=== PATIENT | male | born 1980 | race Caucasian/White ===

== ENCOUNTER 2017-03-12 17:02 | Inpatient (IN) ==
--- NOTE | 2017-03-12 17:15 | Emergency Department Note ---
Disposition Clinical Impression: Suicidal ideation Disposition: Admitted As Inpatient Condition: Good General Adult HPI - General Chief complaint: ED GI Bleed Stated complaint: nausea,vomiting blood Time Seen by Provider: 03/12/17 17:12 Source: patient Limitations: no limitations - History of Present Illness Pain Scale: 8 - Related Data Previous Rx's Medication Instructions Recorded Naproxen [Naprosyn] 500 mg PO BID #30 tablet 12/24/16 Allergies Allergy/AdvReac Type Severity Reaction Status Date / Time Sulfa (Sulfonamide Allergy See Verified 12/24/16 12:21 Antibiotics) Comments Past Medical History - Past Medical History Medical history: Reports: no medical history - Social History Smoking Status: Current every day smoker Alcohol use: Reports: none Drug use: Reports: none Physical Exam - General Limitations: no limitations General appearance: alert, in no apparent distress Course Vital Signs Temperature 97.8 F 03/12/17 17:03 Pulse Rate 97 03/12/17 17:03 Respiratory Rate 18 03/12/17 17:03 Blood Pressure 135/92 03/12/17 17:03 O2 Sat by Pulse Oximetry 97 03/12/17 17:03 Temperature 97.3 F L 03/13/17 08:04 Pulse Rate 76 03/13/17 08:04 Respiratory Rate 16 03/13/17 08:04 Blood Pressure 111/79 03/13/17 08:04 O2 Sat by Pulse Oximetry 97 03/12/17 17:03 Oxygen Delivery Oxygen Delivery Room Air Medical Decision Making - Lab Data Result diagrams: 03/12/17 17:48 03/12/17 17:48 Lab Results 03/12/17 03/12/17 03/12/17 Range/Units 17:48 17:48 18:01 WBC 11.3 H (4.3-11.1) K/mcL RBC 5.15 (4.19-5.50) M/mcL Hgb 16.0 (12.9-16.9) g/dL Hct 46.6 (37.5-50.1) % MCV 90.5 (83.0-100.0) fL MCH 31.1 (28.0-33.3) pg MCHC 34.3 (31.6-35.5) g/dL RDW 11.9 (11.5-14.5) % Plt Count 252 (140-400) K/mcL MPV 9.3 L (9.4-12.4) fL Immature Gran % 0.4 (0-4) % Seg Neutrophils % 63.7 % Lymphocytes % 21.4 % Monocytes % 9.6 % Eosinophils % 4.4 % Basophils % 0.5 % Neutrophils # 7.2 (1.6-8.9) K/mcL Lymphocytes # 2.4 (0.6-4.6) K/mcL Monocytes # 1.1 (0.0-1.3) K/mcL Eosinophils # 0.5 (0.0-0.6) K/mcL Basophils # 0.1 (0.0-0.2) K/mcL Sodium 138 (136-145) mEq/L Potassium 3.5 (3.5-4.5) mEq/L Chloride 104 (98-109) mEq/L Carbon Dioxide 23 (19-29) mEq/L BUN 18 (8-26) mg/dL Creatinine 0.83 (0.72-1.25) mg/dL Est GFR ( Amer) > 60 (> 60) Est GFR (Non-Af Amer) > 60 (> 60) BUN/Creatinine Ratio 22 (6-26) Glucose 102 H (70-99) mg/dL Calculated Osmolality 288 (280-300) Calcium 9.8 (8.6-10.8) mg/dL Urine Color Yellow (Yellow) Urine Clarity Cloudy A (Clear) Urine pH 6.0 (5.0-8.0) pH Units Ur Specific [place] 1.021 (1.010-1.025) Urine Protein Negative (Neg-Trace) mg/dL Urine Glucose (UA) Normal (Normal) mg/dL Urine Ketones 40 H (Negative) mg/dL Urine Blood Negative (Negative) Urine Nitrite Negative (Negative) Urine Bilirubin Negative (Negative) Urine Urobilinogen Normal (Normal) mg/dL Ur Leukocyte Esterase Negative (Negative) Urine Microscopic WBC 0-3 (0-3) per hpf Ur Squamous Epith Cells Few (None-Few) per lpf Urine Bacteria Few (None-Few) per hpf Salicylates < 5.0 L (15-30) mg/dL Urine Opiates Screen (Hlownu=237) ng/mL Acetaminophen < 1.0 L (10-30) mcg/mL Ur Barbiturates Screen (Xwalrb=024) ng/mL Ur Phencyclidine Scrn (Cutoff=25) ng/mL Ur Amphetamines Screen (Eqjbxn=4824) ng/mL U Benzodiazepines Scrn (Dadsdn=746) ng/mL Urine Cocaine Screen (Cutoff= 300) ng/mL U Marijuana (THC) Screen (Cutoff = 50) ng/mL Ethyl Alcohol < 10 (0-10) mg/dL 03/12/17 Range/Units 18:01 WBC (4.3-11.1) K/mcL RBC (4.19-5.50) M/mcL Hgb (12.9-16.9) g/dL Hct (37.5-50.1) % MCV (83.0-100.0) fL MCH (28.0-33.3) pg MCHC (31.6-35.5) g/dL RDW (11.5-14.5) % Plt Count (140-400) K/mcL MPV (9.4-12.4) fL Immature Gran % (0-4) % Seg Neutrophils % % Lymphocytes % % Monocytes % % Eosinophils % % Basophils % % Neutrophils # (1.6-8.9) K/mcL Lymphocytes # (0.6-4.6) K/mcL Monocytes # (0.0-1.3) K/mcL Eosinophils # (0.0-0.6) K/mcL Basophils # (0.0-0.2) K/mcL Sodium (136-145) mEq/L Potassium (3.5-4.5) mEq/L Chloride (98-109) mEq/L Carbon Dioxide (19-29) mEq/L BUN (8-26) mg/dL Creatinine (0.72-1.25) mg/dL Est GFR ( Amer) (> 60) Est GFR (Non-Af Amer) (> 60) BUN/Creatinine Ratio (6-26) Glucose (70-99) mg/dL Calculated Osmolality (280-300) Calcium (8.6-10.8) mg/dL Urine Color (Yellow) Urine Clarity (Clear) Urine pH (5.0-8.0) pH Units Ur Specific [place] (1.010-1.025) Urine Protein (Neg-Trace) mg/dL Urine Glucose (UA) (Normal) mg/dL Urine Ketones (Negative) mg/dL Urine Blood (Negative) Urine Nitrite (Negative) Urine Bilirubin (Negative) Urine Urobilinogen (Normal) mg/dL Ur Leukocyte Esterase (Negative) Urine Microscopic WBC (0-3) per hpf Ur Squamous Epith Cells (None-Few) per lpf Urine Bacteria (None-Few) per hpf Salicylates (15-30) mg/dL Urine Opiates Screen Negative (Sspsbr=953) ng/mL Acetaminophen (10-30) mcg/mL Ur Barbiturates Screen Negative (Ammynw=264) ng/mL Ur Phencyclidine Scrn Negative (Cutoff=25) ng/mL Ur Amphetamines Screen Negative (Saebij=5335) ng/mL U Benzodiazepines Scrn Negative (Aiglnb=364) ng/mL Urine Cocaine Screen Positive H (Cutoff= 300) ng/mL U Marijuana (THC) Screen Negative (Cutoff = 50) ng/mL Ethyl Alcohol (0-10) mg/dL Attestation Statement - Attestation Attestation: I examined this patient and my medical decision-making was reviewed with the Resident Physician. I agree with the documented findings, disposition and treatment plan as described except to the extent set forth below. Inie-jy-pfof time provided in conjunction with the resident physician Dr. Ennis Patient appears in no acute distress on exam. He reports nausea, vomiting, hematemesis, epistaxis. Several days ago he attempted suicide by ingesting unknown medications that he purchased on the street. Triage notes and vitals reviewed by me. We will attempt to clear him medically for behavioral evaluation 18:12: Care to be endorsed to the oncoming physician at 7 PM pending behavioral consultation
[2017-03-12] MEDS ORDERED: Ondansetron ODT 4 MG TAB.RAPDIS SL ONE (17:34)
--- NOTE | 2017-03-12 17:35 | Emergency Department Note ---
Disposition Clinical Impression: Suicidal ideation Disposition: Still a Patient Condition: Good Referrals: NONE,PCP [Primary Care Provider] - Forms: ED Satisfaction Letter Time of Disposition: 18:53 General Adult HPI - General Chief complaint: ED GI Bleed Stated complaint: nausea,vomiting blood Time Seen by Provider: 03/12/17 17:12 Source: patient Limitations: no limitations Nursing Notes Reviewed: Yes Vital Signs Reviewed: Yes - History of Present Illness HPI Narrative: Patient presenting to the emergency department complaining of suicidal ideation. He has had a suicide attempt on Tuesday. Multiple street drugs and then ingested them and a suicide attempt. Did not wake up until yesterday and then was not out of his room until today. He is a member of the [employer]. States that he had a nosebleed yesterday and then today he had another nosebleed with some hematemesis. Reports some mild nausea currently as well as a headache. Pain Scale: 8 - Related Data Previous Rx's Medication Instructions Recorded Naproxen [Naprosyn] 500 mg PO BID #30 tablet 12/24/16 Allergies Allergy/AdvReac Type Severity Reaction Status Date / Time Sulfa (Sulfonamide Allergy See Verified 12/24/16 12:21 Antibiotics) Comments All systems ED: reviewed and negative except as stated. Constitutional: Denies: fever, chills Eyes: Reports: other (Nosebleed yesterday and today.). Denies: eye pain, vision change ENT ED: Denies: throat pain, congestion Cardiovascular: Denies: chest pain, palpitations, syncope Respiratory: Denies: cough, dyspnea, wheezes, hemoptysis Gastrointestinal: Reports: nausea, vomiting, hematemesis. Denies: abdominal pain, diarrhea Genitourinary: Denies: urgency, dysuria, frequency, hematuria, testicular mass Musculoskeletal: Denies: back pain, neck pain Integumentary: Denies: rash, abrasion, lesions Neurological: Reports: headache. Denies: weakness, numbness, paresthesias Past Medical History - Past Medical History Attestation: Yes The following information was validated with the patient. Medical history: Reports: no medical history - Social History Smoking Status: Current every day smoker Alcohol use: Reports: none Drug use: Reports: none Physical Exam - General Limitations: no limitations General appearance: alert, in no apparent distress - Head Head exam: atraumatic, normocephalic, normal inspection - Eye Eye exam: Present: normal appearance, PERRL, EOMI - ENT ENT exam: normal exam, normal oropharynx, mucous membranes moist - Neck Neck exam: Present: normal inspection, full ROM, trachea midline. Absent: tenderness, meningismus, lymphadenopathy - Chest Chest inspection: Present: normal inspection, symmetric chest wall rise. Absent : tenderness - Respiratory Respiratory exam: Present: normal lung sounds bilaterally. Absent: respiratory distress, accessory muscle use - Cardiovascular Cardiovascular exam: Present: regular rate, normal rhythm, normal heart sounds - Abdominal Exam Abdominal exam: Present: soft, Non-Tender. Absent: tenderness, distention, guarding, rebound, rigidity - Extremities Exam Extremities exam: Present: normal inspection, full ROM, normal capillary refill. Absent: tenderness, pedal edema - Back Exam Back exam: Present: normal inspection, full ROM. Absent: tenderness, CVA tenderness (R), CVA tenderness (L) - Neurological Exam Neurological exam: Present: alert, oriented X3 - Psychiatric Psychiatric exam: Present: normal affect, normal mood - Skin Skin exam: Present: warm, dry, intact, normal color. Absent: rash, cyanosis, diaphoresis, erythema Course Course Narrative: Patient presented to the emergency department complaining of suicidal ideation. He states that he had a suicide attempt on Tuesday. By ingestion. He bought several street drugs and ingested them. He did not wake up until yesterday. He had a nosebleed at that time. Today one of the members about his house found him in his room. States that he had a nosebleed and then some hematemesis. He states he has a headache at this time. He is also nauseated. Denies any shortness of breath or chest pain. Denies any abdominal pain. No hematemesis or epistaxis at this time. Lung sounds are clear abdomen is soft and nontender. No signs of edema to his extremities. Reports suicidal ideation. No homicidal ideation. No hallucinations. States that he does have a history of bipolar and depression. He denies taking any kind of medication for this. We will do a workup on patient and contact one A. Vital Signs Temperature 97.8 F 03/12/17 17:03 Pulse Rate 97 03/12/17 17:03 Respiratory Rate 18 03/12/17 17:03 Blood Pressure 135/92 03/12/17 17:03 O2 Sat by Pulse Oximetry 97 03/12/17 17:03 Temperature 97.8 F 03/12/17 17:03 Pulse Rate 97 03/12/17 17:03 Respiratory Rate 18 03/12/17 17:03 Blood Pressure 135/92 03/12/17 17:03 O2 Sat by Pulse Oximetry 97 03/12/17 17:03 Oxygen Delivery Oxygen Delivery Room Air Medical Decision Making - Medical Records Medical records reviewed: Yes I reviewed the patient's medical records. - Lab Data Lab results reviewed: Yes I reviewed the patient's lab results. Result diagrams: 03/12/17 17:48 03/12/17 17:48 Lab Results 03/12/17 03/12/17 03/12/17 Range/Units 17:48 17:48 18:01 WBC 11.3 H (4.3-11.1) K/mcL RBC 5.15 (4.19-5.50) M/mcL Hgb 16.0 (12.9-16.9) g/dL Hct 46.6 (37.5-50.1) % MCV 90.5 (83.0-100.0) fL MCH 31.1 (28.0-33.3) pg MCHC 34.3 (31.6-35.5) g/dL RDW 11.9 (11.5-14.5) % Plt Count 252 (140-400) K/mcL MPV 9.3 L (9.4-12.4) fL Immature Gran % 0.4 (0-4) % Seg Neutrophils % 63.7 % Lymphocytes % 21.4 % Monocytes % 9.6 % Eosinophils % 4.4 % Basophils % 0.5 % Neutrophils # 7.2 (1.6-8.9) K/mcL Lymphocytes # 2.4 (0.6-4.6) K/mcL Monocytes # 1.1 (0.0-1.3) K/mcL Eosinophils # 0.5 (0.0-0.6) K/mcL Basophils # 0.1 (0.0-0.2) K/mcL Sodium 138 (136-145) mEq/L Potassium 3.5 (3.5-4.5) mEq/L Chloride 104 (98-109) mEq/L Carbon Dioxide 23 (19-29) mEq/L BUN 18 (8-26) mg/dL Creatinine 0.83 (0.72-1.25) mg/dL Est GFR ( Amer) > 60 (> 60) Est GFR (Non-Af Amer) > 60 (> 60) BUN/Creatinine Ratio 22 (6-26) Glucose 102 H (70-99) mg/dL Calculated Osmolality 288 (280-300) Calcium 9.8 (8.6-10.8) mg/dL Urine Color Yellow (Yellow) Urine Clarity Cloudy A (Clear) Urine pH 6.0 (5.0-8.0) pH Units Ur Specific [place] 1.021 (1.010-1.025) Urine Protein Negative (Neg-Trace) mg/dL Urine Glucose (UA) Normal (Normal) mg/dL Urine Ketones 40 H (Negative) mg/dL Urine Blood Negative (Negative) Urine Nitrite Negative (Negative) Urine Bilirubin Negative (Negative) Urine Urobilinogen Normal (Normal) mg/dL Ur Leukocyte Esterase Negative (Negative) Urine Microscopic WBC 0-3 (0-3) per hpf Ur Squamous Epith Cells Few (None-Few) per lpf Urine Bacteria Few (None-Few) per hpf Salicylates < 5.0 L (15-30) mg/dL Urine Opiates Screen (Uyjqer=058) ng/mL Acetaminophen < 1.0 L (10-30) mcg/mL Ur Barbiturates Screen (Vbhpzb=191) ng/mL Ur Phencyclidine Scrn (Cutoff=25) ng/mL Ur Amphetamines Screen (Hunugn=3524) ng/mL U Benzodiazepines Scrn (Jkxxus=138) ng/mL Urine Cocaine Screen (Cutoff= 300) ng/mL U Marijuana (THC) Screen (Cutoff = 50) ng/mL Ethyl Alcohol < 10 (0-10) mg/dL 03/12/17 Range/Units 18:01 WBC (4.3-11.1) K/mcL RBC (4.19-5.50) M/mcL Hgb (12.9-16.9) g/dL Hct (37.5-50.1) % MCV (83.0-100.0) fL MCH (28.0-33.3) pg MCHC (31.6-35.5) g/dL RDW (11.5-14.5) % Plt Count (140-400) K/mcL MPV (9.4-12.4) fL Immature Gran % (0-4) % Seg Neutrophils % % Lymphocytes % % Monocytes % % Eosinophils % % Basophils % % Neutrophils # (1.6-8.9) K/mcL Lymphocytes # (0.6-4.6) K/mcL Monocytes # (0.0-1.3) K/mcL Eosinophils # (0.0-0.6) K/mcL Basophils # (0.0-0.2) K/mcL Sodium (136-145) mEq/L Potassium (3.5-4.5) mEq/L Chloride (98-109) mEq/L Carbon Dioxide (19-29) mEq/L BUN (8-26) mg/dL Creatinine (0.72-1.25) mg/dL Est GFR ( Amer) (> 60) Est GFR (Non-Af Amer) (> 60) BUN/Creatinine Ratio (6-26) Glucose (70-99) mg/dL Calculated Osmolality (280-300) Calcium (8.6-10.8) mg/dL Urine Color (Yellow) Urine Clarity (Clear) Urine pH (5.0-8.0) pH Units Ur Specific [place] (1.010-1.025) Urine Protein (Neg-Trace) mg/dL Urine Glucose (UA) (Normal) mg/dL Urine Ketones (Negative) mg/dL Urine Blood (Negative) Urine Nitrite (Negative) Urine Bilirubin (Negative) Urine Urobilinogen (Normal) mg/dL Ur Leukocyte Esterase (Negative) Urine Microscopic WBC (0-3) per hpf Ur Squamous Epith Cells (None-Few) per lpf Urine Bacteria (None-Few) per hpf Salicylates (15-30) mg/dL Urine Opiates Screen Negative (Eitwol=371) ng/mL Acetaminophen (10-30) mcg/mL Ur Barbiturates Screen Negative (Czdfqn=381) ng/mL Ur Phencyclidine Scrn Negative (Cutoff=25) ng/mL Ur Amphetamines Screen Negative (Bojlma=9573) ng/mL U Benzodiazepines Scrn Negative (Jjgeiu=741) ng/mL Urine Cocaine Screen Positive H (Cutoff= 300) ng/mL U Marijuana (THC) Screen Negative (Cutoff = 50) ng/mL Ethyl Alcohol (0-10) mg/dL - Radiology Data Radiology results reviewed: Yes I reviewed the patient's radiology results.
[2017-03-12 17:56] LABS: Basophils # 0.1 K/mcL (0.0-0.2); Basophils % 0.5 %; Eosinophils # 0.5 K/mcL (0.0-0.6); Eosinophils % 4.4 %; Hematocrit 46.6 % (37.5-50.1); Immature Granulocytes % 0.4 % (0-4); Lymphocytes # 2.4 K/mcL (0.6-4.6); Lymphocytes % 21.4 %; Mean Corpuscular HGB Conc 34.3 g/dL (31.6-35.5); Mean Corpuscular Hemoglobin 31.1 pg (28.0-33.3); Mean Corpuscular Volume 90.5 fL (83.0-100.0); Mean Platelet Volume 9.3 fL (9.4-12.4); Monocytes # 1.1 K/mcL (0.0-1.3); Monocytes % 9.6 %; Neutrophils # 7.2 K/mcL (1.6-8.9); Platelet Count 252 K/mcL (140-400); Red Blood Count 5.15 M/mcL (4.19-5.50); Red Cell Distribution Width 11.9 % (11.5-14.5); Segmented Neutrophils % 63.7 %
[2017-03-12 18:07] LABS: Bilirubin,Urine Negative (Negative); Blood,Urine Negative (Negative); Clarity,Urine Cloudy (Clear); Color,Urine Yellow (Yellow); Glucose,Urine (UA) Normal (Normal); Ketones,Urine 40 mg/dL (Negative); Leukocyte Esterase,Urine Negative (Negative); Nitrite,Urine Negative (Negative); Protein,Urine Negative (Neg-Trace); Specific Gravity,Urine 1.021 (1.010-1.025); Urobilinogen,Urine Normal (Normal)
[2017-03-12 18:10] LABS: BUN/Creatinine Ratio 22 (6-26); Blood Urea Nitrogen 18 mg/dL (8-26); Calcium 9.8 mg/dL (8.6-10.8); Carbon Dioxide 23 mEq/L (19-29); Chloride 104 mEq/L (98-109); Glucose 102 mg/dL (70-99); Osmolality,Calculated 288 (280-300); Potassium 3.5 mEq/L (3.5-4.5); Sodium 138 mEq/L (136-145); eGFR For African Americans > 60 (> 60); eGFR For Non-African Americans > 60 (> 60)
[2017-03-12 18:11] LABS: Acetaminophen < 1.0 mcg/mL (10-30); Ethanol < 10 mg/dL (0-10); Salicylate < 5.0 mg/dL (15-30)
[2017-03-12 18:19] LABS: Bacteria,Urine Few per hpf (None-Few); Squamous Epithelial Cell,Urine Few per lpf (None-Few); WBC,Urine 0-3 per hpf (0-3)
[2017-03-12 18:21] LABS: Amphetamine Screen,Urine Negative ng/mL (Cutoff=1000); Barbiturate Screen,Urine Negative ng/mL (Cutoff=200); Benzodiazepines Screen,Urine Negative ng/mL (Cutoff=200); Cannabinoid Screen,Urine Negative ng/mL (Cutoff = 50); Cocaine Screen,Urine Positive ng/mL (Cutoff= 300); Opiate Screen,Urine Negative ng/mL (Cutoff=300); Phencyclidine Screen,Urine Negative ng/mL (Cutoff=25)
--- NOTE | 2017-03-12 18:59 | Emergency Department Note ---
Disposition Clinical Impression: Suicidal ideation Disposition: Admitted As Inpatient Condition: Good Referrals: NONE,PCP [Primary Care Provider] - Forms: ED Satisfaction Letter Psych HPI - General Chief Complaint: ED Psychiatric Symptoms Stated Complaint: SI/nausea,vomiting blood Time Seen by Provider: 03/12/17 17:12 Source: patient - Related Data Previous Rx's Medication Instructions Recorded Naproxen [Naprosyn] 500 mg PO BID #30 tablet 12/24/16 Allergies Allergy/AdvReac Type Severity Reaction Status Date / Time Sulfa (Sulfonamide Allergy See Verified 12/24/16 12:21 Antibiotics) Comments Constitutional: Denies: fever, chills Eyes: Reports: other (Nosebleed yesterday and today.). Denies: eye pain, vision change ENT ED: Denies: throat pain, congestion Cardiovascular: Denies: chest pain, palpitations, syncope Respiratory: Denies: cough, dyspnea, wheezes, hemoptysis Gastrointestinal: Reports: nausea, vomiting, hematemesis. Denies: abdominal pain, diarrhea Genitourinary: Denies: urgency, dysuria, frequency, hematuria, testicular mass Musculoskeletal: Denies: back pain, neck pain Integumentary: Denies: rash, abrasion, lesions Neurological: Reports: headache. Denies: weakness, numbness, paresthesias Past Medical History - Past Medical History Medical history: Reports: no medical history - Social History Smoking Status: Current every day smoker Alcohol use: Reports: none Drug use: Reports: none Physical Exam - General Limitations: no limitations General appearance: alert, in no apparent distress Course Course Narrative: Johnson of care from dayshift team. In brief patient is a 37-year-old male who presents to the ER due to suicidal ideation. He reports trying to use drugs on Tuesday to end his life. He states that he was not found for 5 days. He continues to endorse suicidal ideation requesting that I bring it into the room. He reports that he does have a prior history of depression and anxiety and PTSD however he has not been on medications. Currently waiting on medical clearance for psychiatric evaluation. Vital Signs Temperature 97.8 F 03/12/17 17:03 Pulse Rate 97 03/12/17 17:03 Respiratory Rate 18 03/12/17 17:03 Blood Pressure 135/92 03/12/17 17:03 O2 Sat by Pulse Oximetry 97 03/12/17 17:03 Temperature 97.8 F 03/12/17 17:03 Pulse Rate 97 03/12/17 17:03 Respiratory Rate 18 03/12/17 17:03 Blood Pressure 135/92 03/12/17 17:03 O2 Sat by Pulse Oximetry 97 03/12/17 17:03 Oxygen Delivery Oxygen Delivery Room Air Psych - MDM Narrative Medical decision making narrative: 37-year-old male presents to the ER due to suicidal ideation. Medically cleared for psychiatric evaluation. Patient is accepted to the psychiatric service for inpatient management for suicidal ideation. - Lab Data Lab results reviewed: Yes I reviewed the patient's lab results. Result diagrams: 03/12/17 17:48 03/12/17 17:48 Lab Results 03/12/17 03/12/17 03/12/17 Range/Units 17:48 17:48 18:01 WBC 11.3 H (4.3-11.1) K/mcL RBC 5.15 (4.19-5.50) M/mcL Hgb 16.0 (12.9-16.9) g/dL Hct 46.6 (37.5-50.1) % MCV 90.5 (83.0-100.0) fL MCH 31.1 (28.0-33.3) pg MCHC 34.3 (31.6-35.5) g/dL RDW 11.9 (11.5-14.5) % Plt Count 252 (140-400) K/mcL MPV 9.3 L (9.4-12.4) fL Immature Gran % 0.4 (0-4) % Seg Neutrophils % 63.7 % Lymphocytes % 21.4 % Monocytes % 9.6 % Eosinophils % 4.4 % Basophils % 0.5 % Neutrophils # 7.2 (1.6-8.9) K/mcL Lymphocytes # 2.4 (0.6-4.6) K/mcL Monocytes # 1.1 (0.0-1.3) K/mcL Eosinophils # 0.5 (0.0-0.6) K/mcL Basophils # 0.1 (0.0-0.2) K/mcL Sodium 138 (136-145) mEq/L Potassium 3.5 (3.5-4.5) mEq/L Chloride 104 (98-109) mEq/L Carbon Dioxide 23 (19-29) mEq/L BUN 18 (8-26) mg/dL Creatinine 0.83 (0.72-1.25) mg/dL Est GFR ( Amer) > 60 (> 60) Est GFR (Non-Af Amer) > 60 (> 60) BUN/Creatinine Ratio 22 (6-26) Glucose 102 H (70-99) mg/dL Calculated Osmolality 288 (280-300) Calcium 9.8 (8.6-10.8) mg/dL Urine Color Yellow (Yellow) Urine Clarity Cloudy A (Clear) Urine pH 6.0 (5.0-8.0) pH Units Ur Specific [place] 1.021 (1.010-1.025) Urine Protein Negative (Neg-Trace) mg/dL Urine Glucose (UA) Normal (Normal) mg/dL Urine Ketones 40 H (Negative) mg/dL Urine Blood Negative (Negative) Urine Nitrite Negative (Negative) Urine Bilirubin Negative (Negative) Urine Urobilinogen Normal (Normal) mg/dL Ur Leukocyte Esterase Negative (Negative) Urine Microscopic WBC 0-3 (0-3) per hpf Ur Squamous Epith Cells Few (None-Few) per lpf Urine Bacteria Few (None-Few) per hpf Salicylates < 5.0 L (15-30) mg/dL Urine Opiates Screen (Jgvrmi=659) ng/mL Acetaminophen < 1.0 L (10-30) mcg/mL Ur Barbiturates Screen (Bqfmyx=223) ng/mL Ur Phencyclidine Scrn (Cutoff=25) ng/mL Ur Amphetamines Screen (Flbqce=9869) ng/mL U Benzodiazepines Scrn (Zojhtu=580) ng/mL Urine Cocaine Screen (Cutoff= 300) ng/mL U Marijuana (THC) Screen (Cutoff = 50) ng/mL Ethyl Alcohol < 10 (0-10) mg/dL 03/12/17 Range/Units 18:01 WBC (4.3-11.1) K/mcL RBC (4.19-5.50) M/mcL Hgb (12.9-16.9) g/dL Hct (37.5-50.1) % MCV (83.0-100.0) fL MCH (28.0-33.3) pg MCHC (31.6-35.5) g/dL RDW (11.5-14.5) % Plt Count (140-400) K/mcL MPV (9.4-12.4) fL Immature Gran % (0-4) % Seg Neutrophils % % Lymphocytes % % Monocytes % % Eosinophils % % Basophils % % Neutrophils # (1.6-8.9) K/mcL Lymphocytes # (0.6-4.6) K/mcL Monocytes # (0.0-1.3) K/mcL Eosinophils # (0.0-0.6) K/mcL Basophils # (0.0-0.2) K/mcL Sodium (136-145) mEq/L Potassium (3.5-4.5) mEq/L Chloride (98-109) mEq/L Carbon Dioxide (19-29) mEq/L BUN (8-26) mg/dL Creatinine (0.72-1.25) mg/dL Est GFR ( Amer) (> 60) Est GFR (Non-Af Amer) (> 60) BUN/Creatinine Ratio (6-26) Glucose (70-99) mg/dL Calculated Osmolality (280-300) Calcium (8.6-10.8) mg/dL Urine Color (Yellow) Urine Clarity (Clear) Urine pH (5.0-8.0) pH Units Ur Specific [place] (1.010-1.025) Urine Protein (Neg-Trace) mg/dL Urine Glucose (UA) (Normal) mg/dL Urine Ketones (Negative) mg/dL Urine Blood (Negative) Urine Nitrite (Negative) Urine Bilirubin (Negative) Urine Urobilinogen (Normal) mg/dL Ur Leukocyte Esterase (Negative) Urine Microscopic WBC (0-3) per hpf Ur Squamous Epith Cells (None-Few) per lpf Urine Bacteria (None-Few) per hpf Salicylates (15-30) mg/dL Urine Opiates Screen Negative (Uqugsn=094) ng/mL Acetaminophen (10-30) mcg/mL Ur Barbiturates Screen Negative (Qdkeaw=780) ng/mL Ur Phencyclidine Scrn Negative (Cutoff=25) ng/mL Ur Amphetamines Screen Negative (Vhjszk=2212) ng/mL U Benzodiazepines Scrn Negative (Hkqvla=053) ng/mL Urine Cocaine Screen Positive H (Cutoff= 300) ng/mL U Marijuana (THC) Screen Negative (Cutoff = 50) ng/mL Ethyl Alcohol (0-10) mg/dL Psychiatric Medical Clearance - Medical Clearance Checklist Medical History: No Social History Section defined Current Vitals: Last Vital Signs Temp 97.8 F 03/12/17 17:03 Pulse 97 03/12/17 17:03 Resp 18 03/12/17 17:03 BP 135/92 03/12/17 17:03 Pulse Ox 97 03/12/17 17:03 Psychiatric Lab Panel: Drug Levels and Toxicity 03/12/17 03/12/17 17:48 18:01 Urine Opiates Screen Negative Acetaminophen < 1.0 L Ur Barbiturates Screen Negative Ur Phencyclidine Scrn Negative Ur Amphetamines Screen Negative U Benzodiazepines Scrn Negative Urine Cocaine Screen Positive H U Marijuana (THC) Screen Negative Ethyl Alcohol < 10 Abnormal Labs: Abnormal lab results WBC 11.3 K/mcL (4.3-11.1) H 03/12/17 17:48 MPV 9.3 fL (9.4-12.4) L 03/12/17 17:48 Glucose 102 mg/dL (70-99) H 03/12/17 17:48 Urine Clarity Cloudy (Clear) A 03/12/17 18:01 Urine Ketones 40 mg/dL (Negative) H 03/12/17 18:01 Salicylates < 5.0 mg/dL (15-30) L 03/12/17 17:48 Acetaminophen < 1.0 mcg/mL (10-30) L 03/12/17 17:48 Urine Cocaine Screen Positive ng/mL (Cutoff= 300) H 03/12/17 18:01 Statement of Medical Clearance: I have evaluated the patient, reviewed diagnostic information, and certify that the patient's medical condition is sufficiently stable that transfer to the psychiatric unit does not pose a significant risk of deterioration. Attestation Statement - Attestation Attestation: I have personally performed a face to face evaluation on this patient. I have reviewed and agree with the care plan. History and Exam by me show I examined this patient and my medical decision-making was reviewed with the Resident Physician. I agree with the documented findings, disposition and treatment plan as described except to the extent set forth below. Patient signed out pending one a evaluation. OneA at bedside at this time. Patient cooperative.
[2017-03-12] MEDS ORDERED: Mag Hydrox/Al Hydrox/Simeth 30 ML UDC PO PRN (22:16)
[2017-03-12] MEDS ORDERED: hydrOXYzine pamoate 25 MG CAPSULE PO PRN (22:16)
[2017-03-12] MEDS ORDERED: *HR* LORazepam 1 MG TABLET PO PRN (22:16)
[2017-03-12] MEDS ORDERED: MOM Conc 10 ML UD.LIQ PO PRN (22:16)
[2017-03-12] MEDS ORDERED: *HR* LORazepam 2 MG/ML VIAL IM PRN (22:16)
[2017-03-12] MEDS ORDERED: Haloperidol Lactate 5 MG/ML VIAL IM PRN (22:16)
[2017-03-12] MEDS: Ibuprofen 400 MG TABLET PO PRN (23:04)
[2017-03-12] MEDS: traZODone 50 MG TABLET PO PRN (23:05)
[2017-03-13] MEDS: Ibuprofen 400 MG TABLET PO PRN ×2 (09:27→17:51)
[2017-03-13] MEDS: Nicotine 2 MG GUM BC PRN (14:47)
--- NOTE | 2017-03-13 16:44 | Psychiatry History & Physical ---
Date of Encounter: 03/13/17 Time of Encounter: 16:41 History of Present Illness Patient Stated Chief Complaint: "i am feeling nervous" Medicare Admission Attestation: For traditional Medicare patients the provided hospital inpatient services are reasonable and necessary and in the case of services not specified as inpatient -only under 42 CFR 419.22 (n), that they are appropriately provided as inpatient services in accordance 42 CFR 412.3. For Critical Access Hospital the patient may reasonably be expected to be discharged or transferred to a hospital within 96 hours after admission to the Critical Access Hospital. Plans for Post Hospital Care: Home History of Present Illness: Mr. Dunn is a 37 year old male with past psychiatric hx of ADHD, boderline, bipolar disorder [facility]. Patient reports that he is very nervous about returning home he reports that he will be staying with his mother once he returns home and this is causing him a lot of anxiety. Patient reports not having a very good relationship with his mother due to the incidence leading up to his legal actions left his mother upset. Patient reports that he is feeling very depressed low-energy sad mood and emotional lability. Patient reported having panic attacks when thinking about going home reports having at least 1 panic attack a week. Patient reports that he was on medication in the past when [facility] was in [facility] reports when he got to the correctional facility due to insurance issues medication was not paid for so therefore he is not taking the medication he reports possibly being on Zoloft as well as Trileptal patient reports having a history of seizures last one being August [id number] patient reports active migraine. Patient reports one week he was on the medication he was stable and he felt that the medication helped with his mood swings as well as his anxiety and depression. sleep: pretty good last 3 days not good due to headache appetite : fine Past Med Surg Social Fam HX - Past Medical History Medical history: no medical history - Past Psychiatric History Psychiatric history: Reports: anxiety, bipolar, depression, panic disorder, PTSD Past psychiatric history details: inpatient hospitalizations: 1x past diagnosis per pt borderline, ptsd, anxiety, depression, bipolar disorder past meds- unable to recall was taking in [facility] none since jun 2015 suicide attempts- 1 SA when 2 years old after father passed family psych hx denies Medical hx: seizures hx last one was in 08/2016 Family psychiatric history: No Family History of Suicide: None - Social History Smoking Status: Current every day smoker Smokeless Tobacco Status: No Alcohol use: none Drug use: none Medications & Allergies No Known Home Drugs 03/13/17 [History] 3 Allergy/AdvReac Type Severity Reaction Status Date / Time Sulfa (Sulfonamide Allergy See Verified 12/24/16 12:21 Antibiotics) Comments Review of Systems Psychiatric: Reports: depression, anxiety, mood swings, panic attacks Mental Status Exam Patient orientation: Yes Person, Yes Time, Yes Place, Yes Circumstance Level of alertness: Alert Patient appearance: Appropriate Behavior: nervous, anxious Psychomotor activity: Normal Eye contact: Maintains Eye Contact Mood description: Depressed, Anxious, Labile Affect description: labile, flat Speech pattern: Normal rate Speech volume: Normal Thought process: Intact Thought content: Yes Intact Attention span: Capable of Focused Attention, Capable of Sustained Attention Memory description: Grossly Intact Patient reliability: Reliable Historian Intelligence estimate: Average Judgment: Fair Insight: Partial Exam - HEENT Head exam IM: Present: atraumatic, normal inspection, normocephalic Eye exam IM: Present: EOMI, normal appearance Results - Vital Signs Vital signs: Temp Pulse Resp BP Pulse Ox 97.3 F L 76 16 111/79 97 03/13/17 08:04 03/13/17 08:04 03/13/17 08:04 03/13/17 08:04 03/12/17 17:03 - Labs Labs: Laboratory Last Values WBC 11.3 K/mcL (4.3-11.1) H 03/12/17 17:48 RBC 5.15 M/mcL (4.19-5.50) 03/12/17 17:48 Hgb 16.0 g/dL (12.9-16.9) 03/12/17 17:48 Hct 46.6 % (37.5-50.1) 03/12/17 17:48 MCV 90.5 fL (83.0-100.0) 03/12/17 17:48 MCH 31.1 pg (28.0-33.3) 03/12/17 17:48 MCHC 34.3 g/dL (31.6-35.5) 03/12/17 17:48 RDW 11.9 % (11.5-14.5) 03/12/17 17:48 Plt Count 252 K/mcL (140-400) 03/12/17 17:48 MPV 9.3 fL (9.4-12.4) L 03/12/17 17:48 Immature Gran % 0.4 % (0-4) 03/12/17 17:48 Seg Neutrophils % 63.7 % 03/12/17 17:48 Lymphocytes % 21.4 % 03/12/17 17:48 Monocytes % 9.6 % 03/12/17 17:48 Eosinophils % 4.4 % 03/12/17 17:48 Basophils % 0.5 % 03/12/17 17:48 Neutrophils # 7.2 K/mcL (1.6-8.9) 03/12/17 17:48 Lymphocytes # 2.4 K/mcL (0.6-4.6) 03/12/17 17:48 Monocytes # 1.1 K/mcL (0.0-1.3) 03/12/17 17:48 Eosinophils # 0.5 K/mcL (0.0-0.6) 03/12/17 17:48 Basophils # 0.1 K/mcL (0.0-0.2) 03/12/17 17:48 Sodium 138 mEq/L (136-145) 03/12/17 17:48 Potassium 3.5 mEq/L (3.5-4.5) 03/12/17 17:48 Chloride 104 mEq/L (98-109) 03/12/17 17:48 Carbon Dioxide 23 mEq/L (19-29) 03/12/17 17:48 BUN 18 mg/dL (8-26) 03/12/17 17:48 Creatinine 0.83 mg/dL (0.72-1.25) 03/12/17 17:48 Est GFR ( Amer) > 60 (> 60) 03/12/17 17:48 Est GFR (Non-Af Amer) > 60 (> 60) 03/12/17 17:48 BUN/Creatinine Ratio 22 (6-26) 03/12/17 17:48 Glucose 102 mg/dL (70-99) H 03/12/17 17:48 Calculated Osmolality 288 (280-300) 03/12/17 17:48 Calcium 9.8 mg/dL (8.6-10.8) 03/12/17 17:48 Urine Color Yellow (Yellow) 03/12/17 18:01 Urine Clarity Cloudy (Clear) A 03/12/17 18:01 Urine pH 6.0 pH Units (5.0-8.0) 03/12/17 18:01 Ur Specific [place] 1.021 (1.010-1.025) 03/12/17 18:01 Urine Protein Negative mg/dL (Neg-Trace) 03/12/17 18:01 Urine Glucose (UA) Normal mg/dL (Normal) 03/12/17 18:01 Urine Ketones 40 mg/dL (Negative) H 03/12/17 18:01 Urine Blood Negative (Negative) 03/12/17 18:01 Urine Nitrite Negative (Negative) 03/12/17 18:01 Urine Bilirubin Negative (Negative) 03/12/17 18:01 Urine Urobilinogen Normal mg/dL (Normal) 03/12/17 18:01 Ur Leukocyte Esterase Negative (Negative) 03/12/17 18:01 Urine Microscopic WBC 0-3 per hpf (0-3) 03/12/17 18:01 Ur Squamous Epith Cells Few per lpf (None-Few) 03/12/17 18:01 Urine Bacteria Few per hpf (None-Few) 03/12/17 18:01 Salicylates < 5.0 mg/dL (15-30) L 03/12/17 17:48 Urine Opiates Screen Negative ng/mL (Jnyrmm=163) 03/12/17 18:01 Acetaminophen < 1.0 mcg/mL (10-30) L 03/12/17 17:48 Ur Barbiturates Screen Negative ng/mL (Kdprld=588) 03/12/17 18:01 Ur Phencyclidine Scrn Negative ng/mL (Cutoff=25) 03/12/17 18:01 Ur Amphetamines Screen Negative ng/mL (Sefocj=6901) 03/12/17 18:01 U Benzodiazepines Scrn Negative ng/mL (Mbhuhz=002) 03/12/17 18:01 Urine Cocaine Screen Positive ng/mL (Cutoff= 300) H 03/12/17 18:01 U Marijuana (THC) Screen Negative ng/mL (Cutoff = 50) 03/12/17 18:01 Ethyl Alcohol < 10 mg/dL (0-10) 03/12/17 17:48 Assessment and Plan (1) Anxiety and depression Current visit: Yes Status: Acute Plan: Admit inpatient for safety and stabilization, Encourage participation in unit milieu, Group Therapy, Monitor sleep, Monitor appetite Additional Plan: - 03/13 start zoloft, consult neurology for seizures and migraines Risks, benefits, side effects, alternatives discussed w/pt: Yes Patient agreeable to treatment: Yes Plans for Post Hospital Care: Home Estimated Length of Stay (Days): 3
[2017-03-13] MEDS ORDERED: SUMAtriptan succinate 25 MG TABLET PO ONE (16:59)
[2017-03-13] MEDS: traZODone 50 MG TABLET PO PRN (20:27)
[2017-03-14] MEDS: Nicotine 2 MG GUM BC PRN ×2 (09:57→20:10)
[2017-03-14] MEDS: Ibuprofen 400 MG TABLET PO PRN ×2 (10:01→20:11)
--- NOTE | 2017-03-14 14:14 | Psychiatry Progress Note ---
Date of Encounter: 03/14/17 Time of Encounter: 14:12 Subjective Interval history: Patient seen and evaluated this morning. Patient was in no acute distress during the evaluation. Patient did get a list of his past medications that he reports he was on and this included Elavil 100 mg at bedtime Zoloft 100 mg in the morning Klonopin 0.5 mg 3 times a day as needed lithium 800 mg in the morning patient reports that he did well on this medication he reports feeling though he likes the trazodone better than the Elavil for sleep. Patient reports he does not have a migraine anymore and we are waiting on neurology to come see patient regarding his recent seizure in August. Patient reports no current thoughts of hurting himself or anyone else. Patient has been medication compliant. We will restart medications today and see how patient tolerates them. Review of Systems Psychiatric: Reports: depression, anxiety, mood swings, panic attacks Objective: Exam Patient orientation: Yes Person, Yes Time, Yes Place Level of alertness: Alert Patient appearance: Appropriate Behavior: nervous, anxious Psychomotor activity: Normal Eye contact: Maintains Eye Contact Mood description: Depressed, Anxious Affect description: labile, flat Speech pattern: Normal rate Speech volume: Normal Thought process: Intact Thought content: Yes Intact Judgment: Limited Insight: Partial Results - Vital Signs Vital Signs: Temp Pulse Resp BP Pulse Ox 97.9 F 93 16 98/74 97 03/14/17 09:00 03/14/17 09:00 03/14/17 09:00 03/14/17 09:00 03/12/17 17:03 Assessment and Plan (1) Anxiety and depression Current visit: Yes Status: Acute Plan: Continue hospitalization, Encourage participation in unit milieu, Group Therapy, Monitor sleep, Monitor appetite Additional Plan: - 03/14: start lithium for mood sx's 03/13 start zoloft, consult neurology for seizures and migraines Risks, benefits, side effects, alternatives discussed w/pt: Yes Patient agreeable to treatment: Yes Consult Discharge Plan - Plan Referrals: NONE,PCP [Primary Care Provider] -
--- NOTE | 2017-03-14 15:47 | Neurology - Consult Note ---
Date of Encounter: 03/14/17 Time of Encounter: 15:43 Assessment and Plan (1) History of seizure Current Visit: Yes Status: Acute This patient has a history of seizures since age of 16, seizures are not very frequent and they are quite as stable in fact he is off his medication and he did not have any breakthrough seizures at least for the past 6 months. This time I do not think that he would require any immediate intervention particularly does not need any workup as he already had an MRI and EEGs in the past. His neurological examination is also nonfocal do not think that he would require any imaging studies at this time. Headaches Seems to improve now currently he denies any headache. Time I would recommend that we can start him on Topamax 25 mg twice a day and that could be gradually increased to 50 mg twice a day, but could help as a preventive agent for the headaches and at the same time would help his seizures as well. that may help both as well and at the same time could help his mood disorder Had any breakthrough headaches he can take naproxen on as-needed basis (2) Chronic migraine without aura Current Visit: Yes Status: Acute Qualifiers: Status migrainosus presence: without status migrainosus Intractability: not intractable Qualified Code(s): G43.709 - Chronic migraine without aura, not intractable, without status migrainosus (3) Anxiety and depression Current Visit: Yes Status: Acute History of Present Illness HPI: Mr. Dunn is a 37 year old male with past psychiatric hx of ADHD, boderline, bipolar disorder as well as epilepsy and chronic migraines, admitted [facility] admitted with anxiety depression low-energy, mood and emotional lability. also reported having panic attacks when thinking about going home reports having at least 1 panic attack a week. he has been complaining of Headaches, and has history of seizures, last seizure was in [facility], though he is not sure if its 2017 or last year, as per records its in 1999. he was on Tegretrol and Gabapentin but not on it any more due to being in [facility]. therefore he is not taking the medication. he denies any Headaches now Past Med Surg Social Fam HX - Past Medical History Medical history: no medical history Psychiatric history: anxiety, bipolar, depression, panic disorder, PTSD - Social History Smoking Status: Current every day smoker Packs per day: about 1 pack per day Smokeless Tobacco Status: No Alcohol use: none Drug use: none Medications and Allergies No Known Home Drugs 03/13/17 [History] 3 Allergy/AdvReac Type Severity Reaction Status Date / Time Sulfa (Sulfonamide Allergy See Verified 12/24/16 12:21 Antibiotics) Comments All Systems: A 10-system review of systems was performed and is negative for pertinent findings except as documented above in the HPI. Physical Examination - Vital Signs Vital Signs: Initial Vital Signs Temp Pulse Resp BP Pulse Ox 97.8 F 97 18 135/92 97 03/12/17 17:03 03/12/17 17:03 03/12/17 17:03 03/12/17 17:03 03/12/17 17:03 - Neurologic Detailed motor examination: full strength in all major muscle groups Motor examination - right side: 5/5: deltoids, biceps, triceps, wrist flexion, wrist extension, youth career specialist, hip flexors, tibialis Anterior, quadriceps, toe extension (EHL), plantarflexion Motor examination - left side: 5/5: deltoids, biceps, triceps, wrist flexion, wrist extension, hip flexors, youth career specialist, quadriceps, tibialis Anterior, toe extension (EHL), plantarflexion Mental Status Examination: awake, alert, oriented to person, oriented to place, oriented to time, follows commands appropriately, answers questions appropriately, no agnosia, no aphasia, no aproxia Cranial nerve examination: PERRL, EOMI, visual harvey intact, corneal reflexes brisk symmetrically, sensory to face intact, mastication intact, no facial asymmetry is present, no dysarthria, hearing is intact symmetrically, soft palate elevates bilaterally upon phonation, gag reflex intact, flexes SCM and trapezius muscles symmetrically with full power, tongue protrudes midline, no atrophy or facial fasiculations present Cerebellar examination: no dysmetria, performs finger to nose and heel to marks symmetrically without ataxia, no gait ataxia, no truncal ataxia, no difficulty with rapid alternating movements Results - Laboratory Findings CBC and BMP: 03/12/17 17:48 03/12/17 17:48 Abnormal lab findings: Abnormal lab results WBC 11.3 K/mcL (4.3-11.1) H 03/12/17 17:48 MPV 9.3 fL (9.4-12.4) L 03/12/17 17:48 Glucose 102 mg/dL (70-99) H 03/12/17 17:48 Urine Clarity Cloudy (Clear) A 03/12/17 18:01 Urine Ketones 40 mg/dL (Negative) H 03/12/17 18:01 Salicylates < 5.0 mg/dL (15-30) L 03/12/17 17:48 Acetaminophen < 1.0 mcg/mL (10-30) L 03/12/17 17:48 Urine Cocaine Screen Positive ng/mL (Cutoff= 300) H 03/12/17 18:01 - Diagnostic Findings Additional findings: per Pt last MRI was last year at [facility], and was reported as normal Consult Discharge Plan - Plan Referrals: NONE,PCP [Primary Care Provider] -
[2017-03-14] MEDS: Lithium Carbonate 300 MG CAPSULE PO SCH ×2 (16:51→20:10)
[2017-03-14] MEDS: Topiramate 25 MG CAP.SPRINK PO SCH (20:10)
[2017-03-14] MEDS: traZODone 50 MG TABLET PO PRN (20:11)
[2017-03-15 09:09] VITALS: BP 116/65
[2017-03-15] MEDS: Lithium Carbonate 300 MG CAPSULE PO SCH (09:13)
[2017-03-15] MEDS: Topiramate 25 MG CAP.SPRINK PO SCH (09:13)
[2017-03-15] MEDS: Ibuprofen 400 MG TABLET PO PRN (09:14)
[2017-03-15] MEDS ORDERED: hydrOXYzine pamoate 25 MG CAPSULE PO PRN (13:09)
--- NOTE | 2017-03-15 13:12 | Discharge Summary ---
Date of Encounter: 03/15/17 Time of Encounter: 13:10 Diagnosis - Discharge Diagnosis (1) Anxiety and depression Status: Acute Medications - Discharge Medications Prescriptions: hydrOXYzine pamoate [HydrOXYzine Pamoate] 50 mg PO TID PRN #90 PRN Reason: Anxiety [place] Carbonate 600 mg PO BID #60 Sertraline [Zoloft] 100 mg PO DAILY #30 tab Topiramate [Topamax] 25 mg PO BID #60 traZODone [TraZODone] 50 mg PO HS PRN #30 tab PRN Reason: Insomnia [place] Carbonate 600 mg PO BID #60 03/15/17 [Rx] Sertraline [Zoloft] 100 mg PO DAILY #30 tab 03/15/17 [Rx] Topiramate [Topamax] 25 mg PO BID #60 03/15/17 [Rx] hydrOXYzine pamoate [HydrOXYzine Pamoate] 50 mg PO TID PRN #90 03/15/17 [Rx] traZODone [TraZODone] 50 mg PO HS PRN #30 tab 03/15/17 [Rx] 3 Allergy/AdvReac Type Severity Reaction Status Date / Time Sulfa (Sulfonamide Allergy See Verified 12/24/16 12:21 Antibiotics) Comments Provider Date of admission: 03/12/17 21:38 Primary care physician: PCP NONE Consults: 03/13/17 16:54 Consult to Neurology [CONS] Routine Consulting Provider: Neurology [facility] Reason for Consult: history of seizures, last seizure in August. Not on medications was in [facility]. Current migraine headache. Time Notified: 16:55 Call Completed: No Discharging clinician: Nallely Carson Assessment and Plan - Patient/Caregiver Discharge Instructions Activity: resume usual activities as tolerated Diet: regular diet Additional Instructions: You are returning to the [facility] on discharge from the hospital as required under your Transitional Control agreement with the [place] [facility] [employer] [facility]. - Follow up Plan Follow up with: [facility] [Outside] (Dr. Diana is out of the country until 04/04/2017. When the doctor returns to the office, scheduling staff will speak with him to determine what type of appointment you should be scheduled in (new patient, re-open, follow-up). Office staff will then contact you directly with an appointment to see Dr. Diana for outpatient psychiatric assessment, counseling and medication management services.) Overall status at discharge: Stable Disposition: Transfer Other Hospital Course Hospital course: Mr. Dunn is a 37 year old male admitted to the inpatient psychiatric unit for safety and stabilization patient was admitted after he came from [facility] due to being anxious about being discharged from [facility] to go home. Patient 's home medications were continued and reviewed. Throughout the hospital course patient was restarted on zoloft and lithium, and vistaril prn. Neurology was consulted for migraines and recent seizure activity. Patient was also started on Abilify 5 mg at bedtime to assist with mood symptom stabilization. Patient did not exhibit any side effects to medication he was med compliant while he was on the unit patient participated in groups and was socializing with peers. Patient's sleep and appetite was fair. Patient denied any suicide or homicide ideations. Patient denied any thoughts of self-harm. Patient reports being interested in outpatient medication management and counseling. Patient was discussed for discharge due to patient not being a threat to himself or anyone else. jordan worker did make contact with patient's watch case polisher at [facility]. Patient will be returning to [facility] on discharge. Time spent discussing smoking cessation with patient: 3 to 10 minutes Does patient wish to continue nicotine replacement upon disc: No - Time Spent with Patient Total time spent providing and/or coordinating discharge services: Less than 30 minutes Quality - Multiple Antipsychotics Patient discharged on 2 or more antipsychotic medications: No Procedures - Procedures Procedures: Medication Management, Supportive Therapy, Group Therapy, Psychoeducational Therapy Mental Status Exam - Mental Status Exam Patient orientation: Yes Person, Yes Time, Yes Place, Yes Circumstance Level of alertness: Alert Patient appearance: Appropriate Behavior: calm Psychomotor activity: Normal Eye contact: Maintains Eye Contact Mood description: Euthymic/stable Affect description: congruent with mood Speech pattern: Normal rate, Normal rhythm, Normal tone Speech Volume: Normal Thought process: Intact Thought Content: Yes Intact Judgment: Fair Insight: Partial
[2017-03-15] MEDS ORDERED: Lithium Carbonate 300 MG CAPSULE PO SCH (21:00)
== END 2017-03-15 14:40 | disposition other institution (70) | DRG 918 ==
LOC: EMEROO 17:02 → 1ANU 21:38
PROVIDERS: ADMIT Psychiatry & Neurology Psychiatry; ATTEND Psychiatry & Neurology Psychiatry